=== PATIENT | male | born 2000 | race Caucasian/White ===

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

== ENCOUNTER 2020-01-10 16:21 | Emergency (ER) | payer MEDICAID ==
[~2020-01-10] VITALS: Ht 167.6 cm; Wt 110.3 kg
[2020-01-10 16:30] VITALS: BP 130/73
== END 2020-01-10 20:11 | disposition left against medical advice (07) ==
LOC: ER 16:22
DX: L23.7 Allergic contact dermatitis due to plants, except food (principal); Z53.21 Procedure and treatment not carried out due to patient leaving prior to being seen by health care provider

== ENCOUNTER 2020-03-04 15:40 | Emergency (ER) | payer MEDICAID ==
[~2020-03-04] VITALS: Ht 175.3 cm; Wt 109.0 kg
--- NOTE | 2020-03-04 15:54 | NUR ---
PT AMB WITH STEADY GAIT TO RESTROOM
--- NOTE | 2020-03-04 15:56 | NUR ---
Spoke w/Ravinder from Poison Control. He said that the peak of the medication will be 4-6 hours after ingestion. They said to monitor for Bradycardia, Sleepiness, and Hypotension. Also, recommend standard labs with tylenol & aspirin levels. They recommend activated charcoal if pt is able to. They will check back in on the patient in a little while.
--- NOTE | 2020-03-04 15:58 | NUR ---
PT LAST USED METH "MDA" 2 WEEKS AGO, USES COCAINE OFF AND ON, PT IS COMPLIANT WITH DRESSING IN GREEN SCRUBS, CLOTHING LIST DONE
[2020-03-04] MEDS ORDERED: CLON-529 PO (16:02)
[2020-03-04] MEDS ORDERED: charcoal, activated 50 GM/240 ML bottle PO ONE (16:05)
[2020-03-04 16:13] LABS: BASOPHILS # (AUTO) 0.1 X10'3 (0-0.2); BASOPHILS % (AUTO) 0.8 % (0-1); EOSINOPHILS # (AUTO) 0.1 X10'3 (0-0.9); EOSINOPHILS % (AUTO) 1.9 % (0-6); HEMATOCRIT 46.9 % (42.0-52.0); HEMOGLOBIN 16.1 g/dl (14.0-17.9); LYMPHOCYTES # (AUTO) 1.8 X10'3 (1.1-4.8); LYMPHOCYTES % (AUTO) 27.5 % (21-51); MEAN CORPUSCULAR HGB CONC 34.3 g/dL (33.0-36.5); MEAN CORPUSCULAR VOLUME 87.4 FL (78-98); MEAN PLATELET VOLUME 8.3 FL (7.4-10.4); MONOCYTES # (AUTO) 0.6 X10'3 (0-0.9); MONOCYTES % (AUTO) 8.6 % (2-12); NEUTROPHILS # (AUTO) 4.1 X10'3 (1.8-7.7); NEUTROPHILS % (AUTO) 61.2 % (42-75); PLATELET COUNT 249 X10'3 (140-440); RED BLOOD COUNT 5.36 X10'6 (4.70-6.10); RED CELL DISTRIBUTION WIDTH 12.9 % (11.5-14.5); WHITE BLOOD COUNT 6.7 X10'3 (4.5-11.0)
[2020-03-04 16:23] LABS: URINE AMPHETAMINE SCREEN NEGATIVE (Neg); URINE BARBITUATE SCREEN NEGATIVE (Neg); URINE BENZODIAZEPINES SCREEN NEGATIVE (Neg); URINE CANNABINOID SCREEN POSITIVE (Neg); URINE COCAINE SCREEN NEGATIVE (Neg); URINE METHADONE SCREEN NEGATIVE (Neg); URINE OPIATE SCREEN NEGATIVE (Neg); URINE PHENCYCLIDINE SCREEN NEGATIVE (Neg)
[2020-03-04 16:23] LABS: ACETAMINOPHEN < 2.0 UG/ML (10-30); ALANINE AMINOTRANSFERASE 25 U/L (12-78); ALBUMIN 4.1 G/DL (3.4-5.0); ALKALINE PHOSPHATASE 78 IU/L (20-180); ANION GAP 7 (8-16); ASPARTATE AMINO TRANSFERASE 16 U/L (10-37); BILIRUBIN,TOTAL 0.4 MG/DL (0.1-1.0); BLOOD UREA NITROGEN 17 MG/DL (7-18); BUN/CREATININE RATIO 15.7 (5.4-32.0); CALCIUM 9.6 MG/DL (8.5-10.1); CHLORIDE 104 MMOL/L (99-107); CREATININE 1.08 MG/DL (0.60-1.10); ETHANOL < 0.010 GM/DL (0.0-0.010); GLUCOSE 115 MG/DL (70-104); POTASSIUM 4.4 MMOL/L (3.5-5.1); SODIUM 138 MMOL/L (135-145); TOTAL CARBON DIOXIDE 27.5 MMOL/L (24-32); TOTAL PROTEIN 8.2 G/DL (6.4-8.2); eGFR 88 ML/MIN
--- NOTE | 2020-03-04 16:38 | NUR ---
pt is resting quietly on gurney, report given to Nicolas ERICKSON,
--- NOTE | 2020-03-04 18:59 | NUR ---
report given to Erickson RN, pt amb with steady gait to overflow
--- NOTE | 2020-03-04 20:00 | NUR ---
Patient is crying and experiencing major anxiety. Ativan order taken from ER MD.
[2020-03-04] MEDS ORDERED: LORazepam 2 mg/ml vial IV ONE (20:15)
--- NOTE | 2020-03-04 20:40 | NUR ---
Patient is resting quietly. Suping position. He is falling to sleep.
--- NOTE | 2020-03-04 21:31 | NUR ---
Patient is sleeping quietly.
--- NOTE | 2020-03-05 00:40 | NUR ---
Patient is sleeping on his left side.
--- NOTE | 2020-03-05 01:21 | NUR ---
Patient is sleeping in a supine position. He self re-positions.
--- NOTE | 2020-03-05 02:30 | NUR ---
Patient is sleeping, low fowlers position in bed.
--- NOTE | 2020-03-05 03:20 | NUR ---
Patient is sleeping on his left side. In view from the nursing station.
--- NOTE | 2020-03-05 04:25 | NUR ---
Patilent sleeping in a supine position.
--- NOTE | 2020-03-05 05:36 | NUR ---
Patient is sleeping quietly on his left side.
--- NOTE | 2020-03-05 06:29 | NUR ---
sleeping no signs of respiratiry distress
[2020-03-05 06:54] LABS: CLARITY,URINE SLIGHTLY CLOUDY (Clear); COLOR,URINE YELLOW (Yellow); GLUCOSE, URINE NEGATIVE (Neg); KETONES,URINE NEGATIVE (Neg); LEUKOCYTE ESTERASE ,URINE NEGATIVE (Neg); NITRITES, URINE NEGATIVE (Neg); OCCULT BLOOD,URINE NEGATIVE (Neg); PH,URINE 5.5 (4.8-8.0); PROTEIN,URINE NEGATIVE (Neg); UA COLLECTION TYPE CLN CATCH MIDSTREAM; UROBILINOGEN,URINE 0.2 E.U/dL (0.2-1.0)
--- NOTE | 2020-03-05 07:01 | NUR ---
sleeping no signs of respiratiry distress
[2020-03-05 07:09] LABS: MUCUS STRANDS FEW /LPF (Neg); SQUAMOUS EPITHELIAL CELL,UR FEW /LPF (FEW)
[2020-03-05 07:11] LABS: BACTERIA,URINE FEW /HPF (Neg); CAL OXALATE CRYSTALS 1+ /HPF (NEGATIVE); RBC,URINE 0-2 /HPF (0-2); WBC,URINE 0-4 /HPF (0-4)
[2020-03-05 07:12] LABS: AMORPHOUS URATES 2+
[2020-03-05] MEDS ORDERED: ESCITALOPRAM OXALATE 5 MG TABLET PO SCH (08:00)
--- NOTE | 2020-03-05 08:06 | NUR ---
finished breakfast is now back sleeping
--- NOTE | 2020-03-05 08:08 | NUR ---
Field start taken out
[2020-03-05] MEDS ORDERED: LORazepam 1 MG tablet PO ONE ×3 (09:00→19:50)
--- NOTE | 2020-03-05 09:07 | NUR ---
Patient was cursing ealier and now he is crying, laying bed patient refused ativan
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
[2020-03-05] MEDS ORDERED: LORazepam 2 mg/ml vial IM ONE (09:40)
--- NOTE | 2020-03-05 10:00 | NUR ---
patient has calmed down resting/sleeping
--- NOTE | 2020-03-05 11:01 | NUR ---
sleeping on left side
--- NOTE | 2020-03-05 12:04 | NUR ---
asleep on right side
--- NOTE | 2020-03-05 13:12 | NUR ---
asleep on right side
--- NOTE | 2020-03-05 14:00 | NUR ---
patient laying bed c/o of some anxiety given ativan for it
--- NOTE | 2020-03-05 15:09 | NUR ---
Sitting up in bed
--- NOTE | 2020-03-05 16:03 | NUR ---
Patient is drawing
--- NOTE | 2020-03-05 16:44 | NUR ---
[facility] provider Felix Beebe accepted pt @ [phone], per [facility] TAD office. [facility] ems driver [id number] [phone].
--- NOTE | 2020-03-05 17:22 | NUR ---
resting in bed
--- NOTE | 2020-03-05 18:07 | NUR ---
Resting in bed
[2020-03-05 20:32] VITALS: BP 133/49
== END 2020-03-05 20:40 ==
LOC: ER 15:41
DX: R45.851 Suicidal ideations (principal); F41.9 Anxiety disorder, unspecified; Z72.89 Other problems related to lifestyle; Z56.0 Unemployment, unspecified; Z88.8 Allergy status to other drugs, medicaments and biological substances; Z79.899 Other long term (current) drug therapy
CPT/HCPCS: 36415; 80053; 80305; 80320; 80329; 81001; 85025; 93005; 96372; 96374; 99285; J2060

== ENCOUNTER 2021-01-06 16:12 | Emergency (ER) | payer MEDICAID ==
[~2021-01-06] VITALS: Ht 175.3 cm; Wt 113.6 kg
[~2021-01-06 16:12] MED LIST changes: +CLON-529 PO; -DIVA250T15 PO; -DIVA250T4 PO
[2021-01-06 16:20] VITALS: BP 133/88
[2021-01-06] MEDS ORDERED: NO HOME MEDS (16:30)
== END 2021-01-06 17:03 | disposition home or self-care (01) ==
LOC: ER 16:13
DX: M25.511 Pain in right shoulder (principal); F17.200 Nicotine dependence, unspecified, uncomplicated; F12.90 Cannabis use, unspecified, uncomplicated; Z72.89 Other problems related to lifestyle; Z59.0 Homelessness; Z88.8 Allergy status to other drugs, medicaments and biological substances; Z79.899 Other long term (current) drug therapy
CPT/HCPCS: 73030; 99283

== ENCOUNTER 2021-02-02 16:27 | Emergency (ER) | payer MEDICAID ==
[~2021-02-02] VITALS: Ht 177.8 cm; Wt 113.6 kg
[~2021-02-02 16:27] MED LIST changes: -CLON-529 PO; -ESCI10TA PO; +NO HOME MEDS
[2021-02-02] MEDS ORDERED: IBUP-1984 PO (17:30)
[2021-02-02] MEDS ORDERED: PENI500T2 PO (17:30)
[2021-02-02 17:45] VITALS: BP 163/89
== END 2021-02-02 17:41 | disposition home or self-care (01) ==
LOC: ER 16:28
DX: K04.7 Periapical abscess without sinus (principal); F41.9 Anxiety disorder, unspecified; F32.9 Major depressive disorder, single episode, unspecified; F12.90 Cannabis use, unspecified, uncomplicated; Z72.89 Other problems related to lifestyle; Z56.0 Unemployment, unspecified; Z88.8 Allergy status to other drugs, medicaments and biological substances; Z79.2 Long term (current) use of antibiotics; Z79.899 Other long term (current) drug therapy
CPT/HCPCS: 99283

== ENCOUNTER 2021-04-25 12:45 | Emergency (ER) | payer MEDICAID ==
[~2021-04-25] VITALS: Ht 177.8 cm; Wt 120.0 kg
[2021-04-25 13:12] VITALS: BP 145/77
[2021-04-25] MEDS ORDERED: PENI500T2 PO (14:28)
== END 2021-04-25 14:44 | disposition home or self-care (01) ==
LOC: ER 12:46
DX: K02.9 Dental caries, unspecified (principal); K08.89 Other specified disorders of teeth and supporting structures; F41.9 Anxiety disorder, unspecified; F32.9 Major depressive disorder, single episode, unspecified; F12.90 Cannabis use, unspecified, uncomplicated; Z72.89 Other problems related to lifestyle; Z56.0 Unemployment, unspecified; Z88.8 Allergy status to other drugs, medicaments and biological substances
CPT/HCPCS: 99283

== ENCOUNTER 2021-08-20 13:49 | Emergency (ER) | payer MEDICAID ==
[~2021-08-20] VITALS: Ht 175.3 cm; Wt 113.6 kg
[2021-08-20 14:37] VITALS: BP 155/86
[2021-08-20] MEDS ORDERED: ketorolac tromethamine 15mg/ml inj. IM ONE (16:05)
== END 2021-08-21 16:51 | disposition home or self-care (01) ==
LOC: ER 13:49
DX: S93.401A Sprain of unspecified ligament of right ankle, initial encounter (principal); F12.90 Cannabis use, unspecified, uncomplicated; Z56.0 Unemployment, unspecified; Z72.89 Other problems related to lifestyle; Z88.8 Allergy status to other drugs, medicaments and biological substances; X50.1XXA Overexertion from prolonged static or awkward postures, initial encounter; Y93.89 Activity, other specified; Y92.89 Other specified places as the place of occurrence of the external cause; Y99.8 Other external cause status
CPT/HCPCS: 73610; 73630; 99284

== ENCOUNTER 2023-04-19 14:20 | Emergency (ER) | payer MEDICAID ==
[~2023-04-19] VITALS: Ht 175.3 cm; Wt 98.2 kg
[2023-04-19 15:13] LABS: URINE AMPHETAMINE SCREEN NEGATIVE (Neg); URINE BARBITUATE SCREEN NEGATIVE (Neg); URINE BENZODIAZEPINES SCREEN NEGATIVE (Neg); URINE CANNABINOID SCREEN POSITIVE (Neg); URINE COCAINE SCREEN NEGATIVE (Neg); URINE METHADONE SCREEN NEGATIVE (Neg); URINE OPIATE SCREEN NEGATIVE (Neg); URINE PHENCYCLIDINE SCREEN NEGATIVE (Neg)
[2023-04-19 16:07] VITALS: BP 129/69
[2023-04-19 16:08] LABS: BASOPHILS # (AUTO) 0.1 X10'3 (0-0.2); BASOPHILS % (AUTO) 0.7 % (0-1); EOSINOPHILS # (AUTO) 0.2 X10'3 (0-0.9); HEMATOCRIT 41.8 % (42.0-52.0); HEMOGLOBIN 14.1 g/dl (14.0-17.9); LYMPHOCYTES # (AUTO) 2.5 X10'3 (1.1-4.8); LYMPHOCYTES % (AUTO) 32.9 % (21-51); MEAN CORPUSCULAR HEMOGLOBIN 30.2 PG (27.0-31.0); MEAN CORPUSCULAR HGB CONC 33.7 g/dL (33.0-36.5); MEAN CORPUSCULAR VOLUME 89.6 FL (78-98); MEAN PLATELET VOLUME 7.6 FL (7.4-10.4); MONOCYTES # (AUTO) 0.6 X10'3 (0-0.9); MONOCYTES % (AUTO) 8.5 % (2-12); NEUTROPHILS # (AUTO) 4.1 X10'3 (1.8-7.7); NEUTROPHILS % (AUTO) 54.9 % (42-75); PLATELET COUNT 256 X10'3 (140-440); RED BLOOD COUNT 4.66 X10'6 (4.70-6.10); RED CELL DISTRIBUTION WIDTH 13.2 % (11.5-14.5); WHITE BLOOD COUNT 7.5 X10'3 (4.5-11.0)
[2023-04-19 16:19] LABS: ALANINE AMINOTRANSFERASE 29 U/L (12-78); ALBUMIN 3.9 G/DL (3.4-5.0); ALBUMIN/GLOBULIN RATIO 1.1 (1.1-1.5); ALKALINE PHOSPHATASE 61 IU/L (46-116); ANION GAP 7 (8-16); ASPARTATE AMINO TRANSFERASE 13 U/L (10-37); BILIRUBIN,TOTAL 0.2 MG/DL (0.1-1.0); BLOOD UREA NITROGEN 19 MG/DL (7-18); BUN/CREATININE RATIO 18.8 (10.0-20.0); CALCIUM 9.2 MG/DL (8.5-10.1); CHLORIDE 104 MMOL/L (99-107); CREATININE 1.01 MG/DL (0.60-1.10); GLUCOSE 87 MG/DL (70-104); POTASSIUM 4.1 MMOL/L (3.5-5.1); SODIUM 139 MMOL/L (135-145); TOTAL CARBON DIOXIDE 28.5 MMOL/L (24-32); TOTAL PROTEIN 7.5 G/DL (6.4-8.2); eGFR > 90 ML/MIN
[2023-04-19 16:25] LABS: ETHANOL < 0.010 GM/DL (0.0-0.010)
== END 2023-04-19 17:52 | disposition home or self-care (01) ==
LOC: ER 14:21
DX: F31.9 Bipolar disorder, unspecified (principal); F12.10 Cannabis abuse, uncomplicated; Z56.0 Unemployment, unspecified; Z88.8 Allergy status to other drugs, medicaments and biological substances; Z79.899 Other long term (current) drug therapy
CPT/HCPCS: 36415; 80053; 80305; 80320; 85025; 99283

== ENCOUNTER 2023-08-26 16:39 | Emergency (ER) | payer OTHER, MEDICAID ==
[~2023-08-26] VITALS: Ht 177.8 cm; Wt 100.0 kg
[2023-08-26 17:14] VITALS: BP 130/51; PULSE 98; RESP 18; TEMP 97; O2SAT 98
[2023-08-26] MEDS ORDERED: IBUP-1984 PO (19:12)
--- NOTE | 2023-08-26 19:26 | NUR ---
wound cleaned and dressed*
== END 2023-08-26 19:48 | disposition home or self-care (01) ==
LOC: ER 16:40
DX: S93.401A Sprain of unspecified ligament of right ankle, initial encounter (principal); M25.511 Pain in right shoulder; F12.90 Cannabis use, unspecified, uncomplicated; Z88.1 Allergy status to other antibiotic agents; V89.2XXA Person injured in unspecified motor-vehicle accident, traffic, initial encounter; Y93.89 Activity, other specified; Y92.89 Other specified places as the place of occurrence of the external cause; Y99.8 Other external cause status
CPT/HCPCS: 29515; 73030; 73610; 99284; L1930; A6449

== ENCOUNTER 2024-05-10 18:11 | Emergency (ER) | payer MEDICAID ==
[~2024-05-10] VITALS: Ht 175.3 cm; Wt 107.0 kg
[2024-05-10 18:18] VITALS: TEMP 97.6
[2024-05-10] MEDS ORDERED: iohexol 300mg/ml 100ml inj. ONE (19:39)
[2024-05-10 20:03] LABS: BASOPHILS % (AUTO) 0.1 % (0-1); EOSINOPHILS % (AUTO) 0.2 % (0-6); HEMATOCRIT 40.6 % (42.0-52.0); HEMOGLOBIN 13.5 g/dl (14.0-17.9); LYMPHOCYTES # (AUTO) 1.9 X10'3 (1.1-4.8); LYMPHOCYTES % (AUTO) 8.1 % (21-51); MEAN CORPUSCULAR HEMOGLOBIN 28.6 PG (27.0-31.0); MEAN CORPUSCULAR HGB CONC 33.2 g/dL (33.0-36.5); MEAN CORPUSCULAR VOLUME 86.1 FL (78-98); MONOCYTES # (AUTO) 1.6 X10'3 (0-0.9); MONOCYTES % (AUTO) 7.2 % (2-12); NEUTROPHILS # (AUTO) 19.4 X10'3 (1.8-7.7); NEUTROPHILS % (AUTO) 84.4 % (42-75); PLATELET COUNT 280 X10'3 (140-440); RED BLOOD COUNT 4.71 X10'6 (4.70-6.10); RED CELL DISTRIBUTION WIDTH 13.7 % (11.5-14.5)
[2024-05-10 20:12] LABS: ALBUMIN 3.3 G/DL (3.4-5.0); ANION GAP 10 (8-16); BLOOD UREA NITROGEN 15 MG/DL (7-18); BUN/CREATININE RATIO 16.7 (10.0-20.0); CHLORIDE 101 MMOL/L (99-107); GLUCOSE 105 MG/DL (70-104); LIPASE 18 U/L (16-77); POTASSIUM 3.8 MMOL/L (3.5-5.1); SODIUM 135 MMOL/L (135-145); TOTAL CARBON DIOXIDE 24.3 MMOL/L (24-32); eCRCL 128 ML/MIN; eGFR > 90 ML/MIN
[2024-05-10 20:36] LABS: BILIRUBIN,URINE SMALL (Neg); CLARITY,URINE SLIGHTLY CLOUDY (Clear); COLOR,URINE AMBER (Yellow); GLUCOSE, URINE NEGATIVE (Neg); KETONES,URINE NEGATIVE (Neg); LEUKOCYTE ESTERASE ,URINE NEGATIVE (Neg); NITRITES, URINE NEGATIVE (Neg); OCCULT BLOOD,URINE NEGATIVE (Neg); PROTEIN,URINE TRACE mg/dl (Neg)
[2024-05-10 20:40] LABS: UA COLLECTION TYPE URINAL
[2024-05-10 20:42] LABS: MUCUS STRANDS MANY /LPF (Neg); SQUAMOUS EPITHELIAL CELL,UR FEW /LPF (FEW)
[2024-05-10 20:43] LABS: BACTERIA,URINE FEW /HPF (Neg); RBC,URINE 0-2 /HPF (0-2)
[2024-05-10] MEDS ORDERED: DOXY-225 PO (20:43)
[2024-05-10 20:44] LABS: WBC,URINE 0-4 /HPF (0-4)
[2024-05-10] MEDS: azithromycin 250mg tablet PO ONE (20:54)
[2024-05-10] MEDS: CefTRIAXone/D5W-Rocephin 1gm 50 ML IV ONE (20:54)
[2024-05-10 21:50] VITALS: BP 137/87; PULSE 94; RESP 18; O2SAT 98
== END 2024-05-10 21:51 | disposition home or self-care (01) ==
LOC: ER 18:16
DX: N45.3 Epididymo-orchitis (principal); N50.811 Right testicular pain; F12.90 Cannabis use, unspecified, uncomplicated; Z88.6 Allergy status to analgesic agent
CPT/HCPCS: 36415; 74177; 76870; 80048; 81001; 83690; 85025; 93976; 96365; 99285; J0696; Q9967; 74176